=== PATIENT | female | born 1965 | race Two or more races ===

== ENCOUNTER 2023-03-20 15:19 | Emergency (ER) | payer OTHER ==
[~2023-03-20] VITALS: Ht 160 cm; Wt 106.6 kg
[2023-03-20 15:23] VITALS: BP 101/71
--- NOTE | 2023-03-20 16:52 | NUR ---
COVID AND FLU SWABS SENT
[2023-03-20] MEDS ORDERED: PRED20TA5 PO (17:46)
[2023-03-20] MEDS ORDERED: IBUP-2213 PO (17:46)
[2023-03-20 17:54] VITALS: BP 101/71
--- NOTE | 2023-03-20 17:54 | NUR ---
Patient discharged with v/s stable. Written and verbal after care instructions given and explained. Patient alert, oriented and verbalized understanding of instructions. Ambulatory with steady gait. All questions addressed prior to discharge. ID band removed. Patient advised to follow up with PMD. Rx of MOTRIN PREDNISONE given. Patient educated on indication of medication including possible reaction and side effects. Opportunity to ask questions provided and answered.
== END 2023-03-20 17:54 | disposition home or self-care (01) ==
LOC: MED 15:19
DX: R50.9 Fever, unspecified (principal); J02.9 Acute pharyngitis, unspecified; R05.9 Cough, unspecified; Z98.890 Other specified postprocedural states
CPT/HCPCS: 71045; 99283